=== PATIENT | female | born 1990 | race Caucasian/White ===

== ENCOUNTER → 2018-06-17 | Outpatient (CLI) | payer OTHER | END | disposition home or self-care (01) | LOC: LAB 09:44 | DX: N91.2 Amenorrhea, unspecified (principal); E78.49 Other hyperlipidemia; E34.8 Other specified endocrine disorders; N95.1 Menopausal and female climacteric states; E23.6 Other disorders of pituitary gland; R19.00 Intra-abdominal and pelvic swelling, mass and lump, unspecified site; N39.0 Urinary tract infection, site not specified; E55.9 Vitamin D deficiency, unspecified ==

== ENCOUNTER 2022-02-07 14:24 | Emergency (ER) | payer OTHER ==
[~2022-02-07] VITALS: Ht 154.9 cm; Wt 65.8 kg
== END 2022-02-07 17:25 | disposition home or self-care (01) ==
LOC: ER 14:24
DX: R23.8 Other skin changes (principal); R50.9 Fever, unspecified

== ENCOUNTER 2022-02-09 23:45 | Emergency (ER) | payer OTHER ==
[~2022-02-09] VITALS: Ht 154.9 cm; Wt 66.2 kg
[2022-02-10] MEDS ORDERED: DOLOGESIC-DF 51 EACH PO (02:19)
== END 2022-02-10 02:35 ==
LOC: ER 23:45
DX: B01.9 Varicella without complication (principal)

== ENCOUNTER → 2022-02-09 | Emergency (ER) | payer OTHER ==
[~2022-02-09] VITALS: Ht 154.9 cm; Wt 64.9 kg
[~2022-02-09] MED LIST: DOLOGESIC-DF 51 EACH PO
== END | disposition home or self-care (01) ==
LOC: ER 08:23
DX: B01.9 Varicella without complication (principal); R23.8 Other skin changes

== ENCOUNTER 2024-09-16 21:58 | Emergency (ER) | payer OTHER ==
[~2024-09-16] VITALS: Ht 154.9 cm; Wt 70.8 kg
[2024-09-16] MEDS ORDERED: KETOROLAC TROMETHAMINE 60 MG VIAL IM ONE ×2 (23:00→23:06)
[2024-09-16] MEDS ORDERED: CEFTRIAXONE SODIUM 1,000 MG VIAL IM ONE (23:00)
== END 2024-09-16 23:21 | disposition home or self-care (01) ==
LOC: ER 21:59
DX: S20.01XA Contusion of right breast, initial encounter (principal); W22.8XXA Striking against or struck by other objects, initial encounter; Y93.89 Activity, other specified; Y92.89 Other specified places as the place of occurrence of the external cause